=== PATIENT | male | born 1990 | race Caucasian/White ===

== ENCOUNTER 2021-11-30 21:00 | Emergency (ER) | payer SELFPAY | END 2021-12-01 00:25 | disposition home or self-care (01) | LOC: MW.ED 21:00 | DX: U07.1 COVID-19 (principal) | CPT/HCPCS: 71046; 71046-26; 93005; 99284; U0002 ==

== ENCOUNTER 2021-12-17 20:18 | Emergency (ER) | payer OTHER ==
[2021-12-17 21:05] LABS: CARBON DIOXIDE,CO2 17.6 mmol/L (21.0-32.0); POTASSIUM,K 3.8 mmol/L (3.5-5.1)
== END 2021-12-17 21:41 | disposition home or self-care (01) ==
LOC: MW.ED 20:18
DX: R56.9 Unspecified convulsions (principal)
CPT/HCPCS: 36415; 73030; 80053; 83735; 85025; 96365; 99284; J1953; 99283

== ENCOUNTER 2022-03-06 10:57 | Emergency (ER) | payer OTHER | END 2022-03-06 13:03 | disposition home or self-care (01) | LOC: MW.ED 10:57 | DX: S06.0X0A Concussion without loss of consciousness, initial encounter (principal); Z79.899 Other long term (current) drug therapy; Z86.16 Personal history of COVID-19 | CPT/HCPCS: 70450; 70450-26; 99283 ==

== ENCOUNTER 2022-04-07 18:41 | Emergency (ER) | payer OTHER ==
[2022-04-07] MEDS ORDERED: levETIRAcetam 500 MG Tab PO STA (21:07)
== END 2022-04-07 21:13 ==
LOC: MW.ED 18:41
DX: G40.909 Epilepsy, unspecified, not intractable, without status epilepticus (principal); Z76.0 Encounter for issue of repeat prescription
CPT/HCPCS: 99282; A9270